=== PATIENT | male | born 1945 | race Caucasian/White ===

== ENCOUNTER 2017-06-18 14:28 | Inpatient (IN) | payer MEDICARE, BC ==
[~2017-06-18] VITALS: Ht 175.3 cm; Wt 85.2 kg
--- NOTE | 2017-06-18 17:35 | NUR ---
recieved to [place] [id number]/.oriented to room and surroundings.
[2017-06-18] MEDS ORDERED: FLOMAX0.4 MG PO (18:01)
[2017-06-18] MEDS ORDERED: ZETIA10 MG PO (18:02)
[2017-06-18] MEDS ORDERED: CELEXA10 MG PO (18:03)
[2017-06-18] MEDS ORDERED: ZYRTEC10 MG PO (18:04)
[2017-06-18] MEDS ORDERED: COUMADIN5 MG PO (18:05)
[2017-06-18] MEDS ORDERED: BAYER CHEWABLE81 MG PO (18:05)
[2017-06-18] MEDS ORDERED: HYDROCODONE-APA1 TAB PO (18:10)
[2017-06-18 19:00] VITALS: BP 164/65
--- NOTE | 2017-06-18 19:30 | NUR ---
PT IN BE WITH HOB UP FOR COMFORT. RESTING QUIETLY. ALERT & ORIENTED. CABBAGE SITE X2 RIGHT ARM AND RIGHT LEG. LEFT SIDE PACEMAKER. CPAP @ NIGHT. TELEMETRY. NO O2. NO IV. BED IN LOWEST POSITION AND CALL LIGHT WITHIN REACH.
[2017-06-18 21:29] LABS: INR 1.12 (0.85-1.17); PROTIME 14.3 SECONDS (11.6-15.0)
[2017-06-18 22:31] VITALS: BMI 28.8
--- NOTE | 2017-06-18 22:53 | NUR ---
SIA RAHMAN TO DO ASSESSMENT. JOSE J ALARM PLACED ON PT'S BED.
--- NOTE | 2017-06-18 22:55 | NUR ---
ADMISSION ASSESSMENT COMPLETE. EMPLACED PATIENT'S CPAP MASK AND INITIATED CPAP THERAPY.
--- NOTE | 2017-06-19 01:56 | NUR ---
ASSISTED PT WITH URINAL.
--- NOTE | 2017-06-19 04:23 | NUR ---
PT IN BED WITH HOB UP FOR COMFORT. EYES CLOSED. CHEST RISING AND FALLING. BED IN LOWEST POSITION AND CALL LIGHT WITHIN REACH. JOSE J ALARM ON.
[2017-06-19 07:04] LABS: BASOPHILS 0.2 % (0-2); EOSINOPHILS 2.2 % (0-7); HEMOGLOBIN 10.5 g/dL (13.5-17.5); IMMATURE GRANULOCYTES 6.6 % (0-5); LYMPHOCYTES 17.6 % (15-50); MCH 28.7 pg (26.0-34.0); MCHC 32.8 g/dL (31.0-37.0); MCV 87.4 fL (80.0-100.0); MEAN PLATELET VOLUME 9.6 fL (7.4-10.4); MONOCYTES 5.9 % (2-11); NEUTROPHILS 67.5 % (40-80); PLATELET COUNT 240 10x3/uL (130-400); RBC 3.66 10x6/uL (4.20-6.10); RDW 15.3 % (11.5-14.5); WBC 9.1 10x3/uL (4.8-10.8)
[2017-06-19 07:26] LABS: ANION GAP 12.8 mmol/L (8-16); CALCIUM 8.8 mg/dL (8.5-10.1); CARBON DIOXIDE 23.4 mmol/L (21.0-32.0); CREATININE - SERUM 1.7 mg/dL (0.6-1.3); POTASSIUM - SERUM 4.2 mmol/L (3.5-5.1)
[2017-06-19 08:03] LABS: INR 1.09 (0.85-1.17); PROTIME 13.8 SECONDS (11.6-15.0)
[2017-06-19 08:27] VITALS: BP 164/64
--- NOTE | 2017-06-19 09:35 | NUR ---
PT AM MEDS ADMINISTERED. PT RT ARM DRESSING CHANGED AND RLE DRESSING APPLIED DUE TO SEROSANG DRAINAGE FROM BOTH SITES. PT BECAME VERY SHORT OF BREATH WHEN ASKED TO STAND AND WHILE CHANGING HIS PANTS. O2 SAT REMAINED IN THE LOW 90'S. PT DENIES FURTHER NEEDS AT THIS TIME. EVERARDO.
[2017-06-19 10:15] VITALS: Ht 175.3 cm; Wt 85.2 kg
--- NOTE | 2017-06-19 11:58 | NUR ---
PATIENT SITTING UP IN A CHAIR IN ROOM. CALL LIGHT WITHIN REACH. VOICES NO NEEDS AT THIS TIME.
--- NOTE | 2017-06-19 12:55 | NUR ---
NEW ORDERS RECEIVED AFTER CARE PLAN MEETING.
--- NOTE | 2017-06-19 14:11 | NUR ---
PATIENT UNABLE TO SIGN ADMISSION PAPER WORK DUE TO HIS HANDWRITTING. VERBAL CONSENT GIVEN FOR.
--- NOTE | 2017-06-19 15:12 | NUR ---
PRN PAIN MEDICATION GIVEN FOR INCISIONAL MIDLINE PAIN/DISC PER PATIENT REQUEST
--- NOTE | 2017-06-19 15:16 | NUR ---
CARE TEAM MEETING: PATIENT NEW TO UNIT AND WILL BE RA AT NEXT MEETING. WILL CONTINUE TO FOLLOW WITH PATIENT.
--- NOTE | 2017-06-19 16:42 | NUR ---
PATIENT RESTING IN BED. CALL LIGHT WITHIN REACH. VOICES NO NEEDS AT THIS TIME
--- NOTE | 2017-06-19 18:08 | NUR ---
DRESSING CHANGED TO LEFT INNER ARM INCSION. CLEANED WITH WOUND HATCHERY EMPLOYEE. MEPILEX BOARDER DRESSING APPLIED. DRESSING CHANGED TO RIGHT INNER LEG. CLEANED WITH WOUND HATCHERY EMPLOYEE. MEPILEX BOARDER DRESSING APPLIED
--- NOTE | 2017-06-19 19:20 | NUR ---
PT IN BED WITH HOB UP FOR COMFORT. WATCHING TV. TELEMETRY. NO O2. NO IV. CPAP @ NIGHT. BED IN LOWEST POSITION AND ALL LIGHT WITHIN REACH.
[2017-06-19 20:15] VITALS: BP 102/63
--- NOTE | 2017-06-19 23:20 | NUR ---
PT IN BED WITH HOB UP FOR COMFORT. EYES CLOSED. CHEST RISING AND FALLING. CPAP ON. JOSE J ALARM ON. BED IN LOWEST POSITION AND CALL LIGHT WITHIN REACH.
--- NOTE | 2017-06-20 01:50 | NUR ---
RESTING QUIETLY IN BED, CPAP MASK IN PLACE.
--- NOTE | 2017-06-20 04:07 | NUR ---
PT IN BED WITH HOB UP FOR COMFORT. EYES CLOSED. REPSIRATIONS EVEN AND UNLABORED. CPAP ON. BED IN LOWEST POSITION AND CALL LIGHT WITHIN STELLA. JOSE J ALARM ON.
[2017-06-20 06:30] LABS: INR 1.29 (0.85-1.17); PROTIME 15.6 SECONDS (11.6-15.0)
[2017-06-20 08:18] VITALS: BP 151/61
--- NOTE | 2017-06-20 09:44 | NUR ---
RESTING ON BED AND TALKING ON THE PHONE. IS ON STERNAL PRECAUTIONS. INCISIONS TO RUE, RLE, CHEST NOTED.
--- NOTE | 2017-06-20 12:36 | NUR ---
SITTING UP IN BED EATING LUNCH. DENIES INCREASED SOB AT REST.
--- NOTE | 2017-06-20 17:32 | NUR ---
JUST FINISHED SUPPER WHILE SITTING UP IN BED. DENIES NEEDS. USES URINAL.
[2017-06-20 19:00] VITALS: BP 131/41
--- NOTE | 2017-06-20 19:27 | NUR ---
STATED TO PT "TONIGHT IS YOUR SHOWER TONIGHT WOULD YOU LIKE TO GET IN THE SHOWER HERE IN A LITTLE BIT?" PT STATED, "NO NOT RIGHT NOW MY BACK IS HURTING TOO BAD." I STATED TO PT, "WHAT IS YOUR PAIN LEVEL 1-10?" PT STATED "ITS ABOUT A 6." I STATED TO PT WOULD YOU LIKE YOUR PAIN MEDICINE?" PT SAID "YES PLEASE." PT ALSO STATED THAT HE "FEELS LIKE I NEED TO HAVE A BM HERE SOON."
--- NOTE | 2017-06-20 20:00 | NUR ---
RESTING IN BED, EYES CLOSED.
--- NOTE | 2017-06-20 21:37 | NUR ---
ASKED PT IF HIS PAIN IS ANY BETTER AND IF HE WANTS TO GO AHEAD AND SLEEP. PT STATED THAT HE JUST WANTS TO GO TO SLEEP. ASSITED PT WITH CPAP.
--- NOTE | 2017-06-21 01:32 | NUR ---
PT IN BED WITH HOB UP FOR COMFORT. EYES CLOSED. CHEST RISING AND FALLING. BED IN LOWEST POSITION AND CALL LIGHT WITHIN REACH.
--- NOTE | 2017-06-21 04:00 | NUR ---
ASSISTED PT TO BATHROOM AND BACK TO BED. DRESSINGS CHANGED ON RIGHT ARM AND RIGHT UPPER LEG. CLEANSED BOTH SITES WITH WOUND SRPAY AND 4X4'S AND COVERED WITH BORDERED GAUZE DRESSING.
--- NOTE | 2017-06-21 04:06 | NUR ---
PT STATES HE DOES NOT WANT TO PUT CPAP ON.
[2017-06-21 06:31] LABS: HEMATOCRIT 29.2 % (42.0-54.0); HEMOGLOBIN 9.6 g/dL (13.5-17.5); LYMPHOCYTES 5.4 % (15-50); MCH 28.2 pg (26.0-34.0); MCHC 32.9 g/dL (31.0-37.0); MCV 85.6 fL (80.0-100.0); NEUTROPHILS 82.1 % (40-80); PLATELET COUNT 234 10x3/uL (130-400); RBC 3.41 10x6/uL (4.20-6.10); RDW 15.4 % (11.5-14.5); WBC 9.6 10x3/uL (4.8-10.8)
[2017-06-21 06:32] LABS: PROTIME 18.4 SECONDS (11.6-15.0)
[2017-06-21 06:35] LABS: INR 1.58 (0.85-1.17)
[2017-06-21 06:49] LABS: ANION GAP 13.8 mmol/L (8-16); CARBON DIOXIDE 23.6 mmol/L (21.0-32.0); CREATININE - SERUM 1.9 mg/dL (0.6-1.3); POTASSIUM - SERUM 4.4 mmol/L (3.5-5.1)
[2017-06-21 09:02] VITALS: BP 153/51
--- NOTE | 2017-06-21 13:55 | NUR ---
PATIENT ADMITTED TO REHAB FROM [facility]. DISCHARGE PLANS ARE FOR PATIENT TO RETURN HOME AT DISCHARGE. WILL CONTINUE TO FOLLOW WITH PATIENT.
--- NOTE | 2017-06-21 19:09 | NUR ---
PT. IN BED WITH HOB UP FOR COMFORT AND HAS MULTIPLE FAMILY MEMBERS PRESENT. NO VOICED NEEDS AND HE HAS HIS CALL LIGHT WITHIN REACH.
--- NOTE | 2017-06-21 19:34 | NUR ---
PT IS RESTING IN BED WATCHING TV. ALERT AND ORIENTED X 3. DENIES PAIN OR DISCOMFORT AT THIS TIME. VSS. SEVERAL FAMILY MEMBERS IN ROOM VISITING. SR'S ARE UP X 2 IN BED. CALL LIGHT AND BEDSIDE TABLE ARE WITHIN EASY REACH.
[2017-06-21 20:58] VITALS: BP 162/73
--- NOTE | 2017-06-21 23:23 | NUR ---
PT IS RESTING QUIETLY IN BED WITH EYES CLOSED. RESPS ARE EVEN AND UNLABORED. NO ACUTE DISTRESS NOTED.
--- NOTE | 2017-06-22 03:38 | NUR ---
PT RESTING IN BED WITH EYES CLOSED.
[2017-06-22 06:10] LABS: INR 1.87 (0.85-1.17)
[2017-06-22 08:00] VITALS: BP 148/66
--- NOTE | 2017-06-22 08:00 | NUR ---
SHIFT ASSMT COMPLETED.
[2017-06-22 19:39] VITALS: BP 154/62
--- NOTE | 2017-06-22 20:01 | NUR ---
PT. IN BED WITH HOB UP FOR COMFORT AND IS WATCHING TV. NO VOICED NEEDS AND HIS CALL LIGHT IS WITHIN REACH.
--- NOTE | 2017-06-22 21:21 | NUR ---
PT ASSISTED TO SHOWER. ALL INCISIONS COVERED, AND PT SHOWERED WITH MOD ASSIST FOR WASHING AND DRYING HIS BACK AND LOWER LEGS ONLY. ASSISTED TO DRESS IN GOWN FOR SLEEP, AND BACK INTO BED. CPAP ON.
--- NOTE | 2017-06-22 23:47 | NUR ---
RESTING IN BED WITH CPAP ON. NO DISTRESS NOTED.
--- NOTE | 2017-06-23 03:01 | NUR ---
PT SITTING UP IN WC IN HIS ROOM. STATES HE COULD NOT STAND LAYING IN THE BED ANY LONGER, AND HAD TO SIT UP.
--- NOTE | 2017-06-23 05:23 | NUR ---
PT ASSISTED TO THE BATHROOM WITH SBA. PT OPTED TO SIT IN CHAIR AFTER. CALL LIGHT IN REACH.
[2017-06-23 06:52] LABS: INR 2.23 (0.85-1.17); PROTIME 24.1 SECONDS (11.6-15.0)
--- NOTE | 2017-06-23 08:00 | NUR ---
SHIFT ASSMT COMPLETED.BREAKFAST GIVEN.EDEMA TO ARMS AND LEGS NOTED;4+.SOB WITH ACTIVITY.
[2017-06-23 08:30] VITALS: BP 173/67
--- NOTE | 2017-06-23 12:00 | NUR ---
UP OOB TO CHAIR FOR LUNCH.
--- NOTE | 2017-06-23 16:00 | NUR ---
DOZING IN CHAIR.ASSISTED BACK TO BED.
--- NOTE | 2017-06-23 19:27 | NUR ---
PT IS RESTING QUIETLY IN BED WITH EYES CLOSED. AWOKE EASILY TO VERBAL STIMULI. O2 IS ON @ 2LPM PER NC. PT GETS SOB WITH ALL ACTIVITY. 3+EDEMA NOTED IN ALL EXTREMITIES. FEET ELEVATED UP ON 2 PILLOWS. TELEMETRY UNIT IS ON AND INTACT. SR'S ARE UP X 3 IN BED. CALL LIGHT AND BEDSIDE TABLE ARE WITHIN EASY REACH.
--- NOTE | 2017-06-23 19:47 | NUR ---
PT. IN BED WITH HOB UP FOR COMFORT AND IS WATCHING TV. DENIES ANY NEEDS AND HAS HIS CALL LIGHT IN HAND.
[2017-06-23 21:26] VITALS: BP 151/76
--- NOTE | 2017-06-23 23:00 | NUR ---
PT IS RESTING QUIETLY IN BED WITH EYES CLOSED. RESPS ARE EVEN AND UNLABORED. NO ACUTE DISTRESS NOTED.
--- NOTE | 2017-06-24 01:48 | NUR ---
PT C/O OF PAIN, A LEVEL OF 3, PAIN MED GIVEN.
--- NOTE | 2017-06-24 02:50 | NUR ---
REPLACE BATTERY FOR PT'S MONITOR.
[2017-06-24 05:12] LABS: INR 2.98 (0.85-1.17); PROTIME 30.2 SECONDS (11.6-15.0)
--- NOTE | 2017-06-24 06:10 | NUR ---
REST IN BED, CALL LIGHT IN REACH.
[2017-06-24 08:00] VITALS: BP 176/71
--- NOTE | 2017-06-24 08:09 | NUR ---
SITTING UP IN CHAIR IN ROOM WITH BOTH LEGS ELEVATED. 4+ EDEMA NOTED TO BLE. HE DENIES INCREASED SOB AT REST. REMAINS ON STERNAL PRECAUTIONS. DSG TO BRONSON REES. CHEST INCISION NOTED ALSO IT IS OPEN TO AIR.
[2017-06-24 08:38] LABS: BASOPHILS 0.2 % (0-2); EOSINOPHILS 0.8 % (0-7); HEMATOCRIT 31.3 % (42.0-54.0); HEMOGLOBIN 10.1 g/dL (13.5-17.5); LYMPHOCYTES 4.5 % (15-50); MCH 28.2 pg (26.0-34.0); MCHC 32.3 g/dL (31.0-37.0); MCV 87.4 fL (80.0-100.0); MEAN PLATELET VOLUME 10.2 fL (7.4-10.4); MONOCYTES 9.3 % (2-11); NEUTROPHILS 84.2 % (40-80); PLATELET COUNT 276 10x3/uL (130-400); RBC 3.58 10x6/uL (4.20-6.10); RDW 15.3 % (11.5-14.5); WBC 11.5 10x3/uL (4.8-10.8)
[2017-06-24 08:58] LABS: ANION GAP 13.7 mmol/L (8-16); CALCIUM 8.7 mg/dL (8.5-10.1); CREATININE - SERUM 1.5 mg/dL (0.6-1.3); POTASSIUM - SERUM 4.7 mmol/L (3.5-5.1)
--- NOTE | 2017-06-24 12:12 | NUR ---
SITTING UP IN ROOM EATING LUNCH. CALL LIGHT IN REACH
--- NOTE | 2017-06-24 19:49 | NUR ---
PT IS RESTING IN BED WITH EYES OPEN. VISITING WITH A FAMILY MEMBER. PT STATES HE FEELS BETTER TODAY, AND IS BREATHING A LITTLE BETTER. VSS. NO ACUTE DISTRESS NOTED. O2 IS ON @ 2LPM PER NC. SR'S ARE UP X 2 IN BED. CALL LIGHT AND BEDSIDE TABLE ARE WITHIN EASY REACH. ALL INCISIONS ARE CDI. NO DRAINAGE NOTED. SR'S ARE UP X 2 IN BED. CALL LIGHT AND BEDSIDE TABLE ARE WITHIN EASY REACH.
[2017-06-24 21:41] VITALS: BP 154/53
--- NOTE | 2017-06-24 22:13 | NUR ---
PT RESTING IN RECLINER WATCHING TV. NO NEEDS VOICED.
--- NOTE | 2017-06-24 23:40 | NUR ---
RESTING IN BED WITH EYES CLOSED. NO S/S OF DISTRESS OBSERVED. CONTINUES TO REFUSE TO WEAR CPAP. CALL LIGHT AND OVERBED TABLE IN REACH.
--- NOTE | 2017-06-25 04:17 | NUR ---
PT IS RESTING QUIETLY IN BED WITH EYES CLOSED. RESPS ARE EVEN AND UNLABORED. NO ACUTE DISTRESS NOTED.
--- NOTE | 2017-06-25 06:05 | NUR ---
PT RESTING IN BED WITH EYES OPEN. NO ACUTE DISTRESS NOTED. PT STATES HE IS FEELING MUCH BETTER TODAY.
[2017-06-25 06:43] LABS: INR 2.66 (0.85-1.17); PROTIME 27.6 SECONDS (11.6-15.0)
[2017-06-25 08:00] VITALS: BP 179/57
--- NOTE | 2017-06-25 08:01 | NUR ---
EATING BREAKFAST IN ROOM. DENIES NEEDS. CALL LIGHT IN REACH
--- NOTE | 2017-06-25 10:54 | NUR ---
Nutrition Follow Up: Pt was in therapy at the time of RD visit. Interview deferred. Pt is eating 48% meal avg on a cardiac diet. +BM 06/22/17. Labs reviewed. Meds noted including Lasix. Rec continue current diet. RD following.
--- NOTE | 2017-06-25 18:08 | NUR ---
SITTING IN RECLINER IN ROOM WATCHING TV
--- NOTE | 2017-06-25 19:20 | NUR ---
PT IN BED [facility] HOB UP FOR COMFORT. EYES CLOSED. CHEST RISING AND FALLING. O2 @ 2L. NO IV. TELEMETRY. CPAP @ NIGHT. PACEMAKER. JOSE J ALARM ON. BED IN LOWEST POSITION AND CALL LIGHT WITHIN REACH.
[2017-06-25 19:30] VITALS: BP 182/68
--- NOTE | 2017-06-25 22:27 | NUR ---
ASSISTED PT TO BATHROOM AND BACK TO BED. PT HAVING SOB. PT STATES "I THINK I NEED ONE OF MY BREATHING TREATMENTS." CALLED JERROD NAVA AND SHE STATED "I'LL BE DOWN IN A MINUTE."
--- NOTE | 2017-06-26 00:35 | NUR ---
IN BED, EYES CLOSED. RESTING QUIETLY.
[2017-06-26 06:44] LABS: INR 2.7 (0.85-1.17)
[2017-06-26 08:00] VITALS: BP 146/63
--- NOTE | 2017-06-26 08:00 | NUR ---
SHIFT ASSMT COMPLETED.LEGS AND BILAT FEET 4+ DEPENDENT EDEMA,SOB WITH ACTIVITY.CL IN REACH.BREAKFAST TRAYB GIVEN.
--- NOTE | 2017-06-26 12:00 | NUR ---
SITTING UP IN WC EATING LUNCH.
--- NOTE | 2017-06-26 15:29 | NUR ---
CARE TEAM MEETING: FRIEND ATTENDED MEETING PER PATIENT REQUEST. QUESTIONS AND CONCERNS ADDRESSED. TENATIVE DISCHARGE DATE IS 07/02/17. AN APPOINTMENT WILL BE MADE WITH DR. Nelly MAHMOOD AT DISCHARGE. WILL CONTINUE TO FOLLOW WITH PATIENT .
--- NOTE | 2017-06-26 16:00 | NUR ---
UP IN BED RESTING.CL IN REACH.DENIES NEEDS.
[2017-06-26 20:10] VITALS: BP 155/95
--- NOTE | 2017-06-26 20:30 | NUR ---
PT. IN BED WITH HOB/FOB ELEVATED FOR COMFORT. ASSESSMENT COMPLETED. NO VOICED NEEDS AT THIS TIME AND HIS CALL LIGHT IS WITHIN REACH.
--- NOTE | 2017-06-26 23:50 | NUR ---
PT. IN BED WITH HOB/FOB ELEVATED FOR COMFORT. PT. AWAKE AND WATCHING TV. NO VOICED NEEDS AND HIS CALL LIGHT IS WITHIN REACH.
--- NOTE | 2017-06-27 04:12 | NUR ---
PT. IN BED AND IS STILL AWAKE AND WATCHING TV. NO VOICED NEEDS AND HIS CALL LIGHT IS WITHIN REACH.
[2017-06-27 04:57] LABS: BASOPHILS 0.3 % (0-2); EOSINOPHILS 0.9 % (0-7); HEMATOCRIT 29.3 % (42.0-54.0); HEMOGLOBIN 9.5 g/dL (13.5-17.5); LYMPHOCYTES 11.8 % (15-50); MCH 27.9 pg (26.0-34.0); MCHC 32.4 g/dL (31.0-37.0); MCV 86.2 fL (80.0-100.0); MEAN PLATELET VOLUME 9.7 fL (7.4-10.4); MONOCYTES 8.7 % (2-11); NEUTROPHILS 77.3 % (40-80); PLATELET COUNT 248 10x3/uL (130-400); RDW 15.4 % (11.5-14.5); WBC 6.7 10x3/uL (4.8-10.8)
[2017-06-27 05:15] LABS: ANION GAP 13.2 mmol/L (8-16); CALCIUM 9.3 mg/dL (8.5-10.1); CARBON DIOXIDE 24.3 mmol/L (21.0-32.0); CREATININE - SERUM 1.6 mg/dL (0.6-1.3); INR 3.18 (0.85-1.17); POTASSIUM - SERUM 4.5 mmol/L (3.5-5.1); PROTIME 31.8 SECONDS (11.6-15.0)
[2017-06-27 08:00] VITALS: BP 148/46
--- NOTE | 2017-06-27 08:00 | NUR ---
SHIFT ASSMT COMPLETED.
--- NOTE | 2017-06-27 12:00 | NUR ---
EATING LUNCH.CL IN REACH.
--- NOTE | 2017-06-27 19:16 | NUR ---
RECEIVED REPORT COMPLETE FROM DAY SHIFT NURSE.
--- NOTE | 2017-06-27 23:49 | NUR ---
REST QUIETLY IN BED, CALL LIGHT IN REACH.
--- NOTE | 2017-06-28 00:45 | NUR ---
SITTING UP ON LEFT SIDE OF BED. SAYS HE IS JUST WATCHING TV. SENT PRIMARY NURSE TO PATIENT TO SET HIS BED ALARM.
[2017-06-28 02:21] VITALS: BP 131/69
--- NOTE | 2017-06-28 03:10 | NUR ---
EMPTY URINE 500ML FROM URINAL.
[2017-06-28 06:38] LABS: ANION GAP 12.2 mmol/L (8-16); CALCIUM 9.3 mg/dL (8.5-10.1); CARBON DIOXIDE 27.5 mmol/L (21.0-32.0); CREATININE - SERUM 1.7 mg/dL (0.6-1.3); POTASSIUM - SERUM 4.7 mmol/L (3.5-5.1)
[2017-06-28 06:44] LABS: INR 3.51 (0.85-1.17); PROTIME 34.4 SECONDS (11.6-15.0)
--- NOTE | 2017-06-28 08:04 | NUR ---
SITTING UP IN RECLINER IN ROOM EATING BREAKFAST. DSG NOTED TO RUE. INCISIONS INTACT TO CHEST.
[2017-06-28 08:09] VITALS: BP 168/68
--- NOTE | 2017-06-28 16:44 | NUR ---
RESTING QUIETLY IN BED. CALL LIGHT IN REACH. BED IN LOWEST POSITION
[2017-06-28 19:30] VITALS: BP 139/60
--- NOTE | 2017-06-28 19:30 | NUR ---
PT IS UP IN RESTROOM WITH EARLY CHILDHOOD EDUCATION COORDINATOR ASSISTING. NO ACUTE DISTRESS NOTED.
--- NOTE | 2017-06-28 21:19 | NUR ---
PT IS RESTING QUIETLY IN BED WITH EYES CLOSED. RESPS ARE EVEN AND UNLABORED. NO ACUTE DISTRESS NOTED.
--- NOTE | 2017-06-28 23:55 | NUR ---
PT RESTING IN BED WITH EYES CLOSED.
--- NOTE | 2017-06-29 01:40 | NUR ---
RESTING QUIETLY IN BED.
--- NOTE | 2017-06-29 06:09 | NUR ---
PT RESTING IN BED WITH EYES OPEN. DENIES ACUTE NEEDS THIS AM. STATES HE FEELS LIKE HE IS ABOUT READY TO DC HOME.
--- NOTE | 2017-06-29 08:00 | NUR ---
SITTING UP ON SIDE OF BED EATING BREAKFAST. ASSISTED WITH FILLING OUT MENU. DENIES ANY NEEDS OR PAIN. NO S/SX OF RESPIRATORY DISTRESS NOTED. CALL LIGHT AND WATER WITHIN REACH, BED LOW AND ALARM ON. WILL CONTINUE TO MONITOR
[2017-06-29 09:50] VITALS: BP 174/79
--- NOTE | 2017-06-29 11:03 | NUR ---
SITTING UP IN CHAIR READING NEWSPAPER. DENIES ANY NEEDS. CALL LIGHT AND PERSONAL ITEMS WITHIN REACH, CHAIR BRAKES LOCKED. WILL CONTINUE TO MONITOR
--- NOTE | 2017-06-29 13:29 | NUR ---
SITTING UP IN W/C VISTING WITH FAMILY. DENIES ANY NEEDS OR PAIN. CALL LIGHT WITHIN REACH, W/C BRAKES LOCKED. WILL CONTINUE TO MONITOR
--- NOTE | 2017-06-29 16:09 | NUR ---
IN THERAPY GYM WITH PHYSICAL THERAPY. NO S/SX OF RESPIRATORY DISTRESS NOTED. WILL CONTINUE TO MONITOR
--- NOTE | 2017-06-29 18:30 | NUR ---
SITTING UP IN W/C WATCHING TV. DENIES ANY NEEDS OR PAIN. CALL LIGHT WITHIN REACH, W/C BRAKES LOCKED. WILL CONTINUE TO MONITO
--- NOTE | 2017-06-29 18:42 | NUR ---
RESTING QUIETLY IN BED. CALL LIGHT IN REACH. BED IN LOWEST POSITION.
--- NOTE | 2017-06-29 19:30 | NUR ---
PT IS RESTING IN BED WITH EYES OPEN. ALERT AND ORIENTED X 3. DENIES ACUTE DISCOMFORT AT THIS TIME. VSS. INCISIONS ARE ALL HEALING WELL. NO DRAINAGE NOTED. TELEMETRY UNIT IS ON AND INTACT. SR'S ARE UP X 2 IN BED. CALL LIGHT AND BEDSIDE TABLE ARE WITHIN EASY REACH.
[2017-06-29 22:18] VITALS: BP 164/60
--- NOTE | 2017-06-29 22:58 | NUR ---
RESTING QUIETLY IN BED WITH EYES CLOSED. RESPS ARE EVEN AND UNLABORED. NO ACUTE DISTRESS NOTED.
--- NOTE | 2017-06-30 01:00 | NUR ---
PT IS RESTING QUIETLY IN BED WITH EYES CLOSED. RESPS ARE EVEN AND UNLABORED. NO ACUTE DISTRESS NOTED.
--- NOTE | 2017-06-30 03:16 | NUR ---
PT NOTED SITTING ON THE SIDE OF HIS BED. STATED: " I JUST NEEDED TO SIT UP A WHILE TO CHANGE POSITIONS."
--- NOTE | 2017-06-30 04:10 | NUR ---
SITTING UP ON THE SIDE OF THE BED AT THIS TIME. PLEASANT AND COOPERATIVE, DENIES ANY PAIN OR DISCOMFOT. CALL LIGHT AND OVERBED TABLE IN REACH.
[2017-06-30 08:44] VITALS: BP 167/65
--- NOTE | 2017-06-30 15:28 | NUR ---
SITTING UP ON SIDE OF BED TALKING WITH FRIENDS. DENIES NEEDS. BLE FROM CALF TO TOES ARE SWOLLEN 4+. ENCOURAGED PT TO KEEP BLE ELEVATED.
--- NOTE | 2017-06-30 20:05 | NUR ---
PT C/O HARD TO BREATH, TALK TO RESP STAFF, AND RESP STAFF GIVE TREATMENT TO PT.
--- NOTE | 2017-06-30 21:05 | NUR ---
PT STATE HE CAN BREATH BETER THAN AN HOUR AGO.
--- NOTE | 2017-07-01 00:02 | NUR ---
SIT UP IN CHAIR, STATES "THE CHAIR IS COMFORTABLE FOR MY BACK."
[2017-07-01 00:07] VITALS: BP 166/58
[2017-07-01 07:21] LABS: BASOPHILS 0.3 % (0-2); EOSINOPHILS 0.6 % (0-7); HEMATOCRIT 31.7 % (42.0-54.0); IMMATURE GRANULOCYTES 0.6 % (0-5); LYMPHOCYTES 15.4 % (15-50); MCH 27.3 pg (26.0-34.0); MCHC 31.5 g/dL (31.0-37.0); MCV 86.6 fL (80.0-100.0); MEAN PLATELET VOLUME 9.8 fL (7.4-10.4); MONOCYTES 10.2 % (2-11); NEUTROPHILS 72.9 % (40-80); PLATELET COUNT 282 10x3/uL (130-400); RBC 3.66 10x6/uL (4.20-6.10); RDW 15.5 % (11.5-14.5); WBC 6.5 10x3/uL (4.8-10.8)
[2017-07-01 07:41] LABS: ANION GAP 12.4 mmol/L (8-16); CALCIUM 9.3 mg/dL (8.5-10.1); CARBON DIOXIDE 27.7 mmol/L (21.0-32.0); CREATININE - SERUM 1.7 mg/dL (0.6-1.3); POTASSIUM - SERUM 4.1 mmol/L (3.5-5.1)
--- NOTE | 2017-07-01 07:54 | NUR ---
RESTING QUIETLY IN BED. CALL LIGHT IN REACH. BED IN LOWEST POSITION.
[2017-07-01] MEDS ORDERED: LASIX40 MG PO (08:40)
--- NOTE | 2017-07-01 08:40 | RHP ---
PATIENT: DALTON FORD MEDICAL RECORD: [id number] ACCOUNT: [id number] LOCATION:[id number] : 47 ADMISSION DATE: 06/18/17 REHABILITATION HISTORY AND PHYSICAL EXAMINATION POST ADMISSION PHYSICIAN EXAMINATION POST-ADMISSION PHYSICAL EXAMINATION AND HISTORY AND PHYSICAL ADMITTING DIAGNOSES: Acute mpa-XD-pooxtew elevation myocardial infarction, status post coronary artery bypass grafting with regraft to the left anterior descending and right coronary artery. Also, mitral valve and tricuspid valve annuloplasty. HISTORY OF PRESENT ILLNESS: The patient is a 72-year-old gentleman, who is status post coronary artery disease, status post coronary artery bypass grafting, who presented to [facility] with 1-month history of progressive shortness of breath, moderate to severe. He was found to be in atrial fibrillation with rapid ventricular response in the ED. Blood pressure was low at 95/50. His heart rate was 121. He was taken to the OR for regraft of LAD and right coronary artery with his right arm vein bypass and right greater saphenous vein bypass on 06/12. He also underwent a mitral valve and tricuspid valve annuloplasty. This was followed by emergent permanent pacemaker placement on 06/15 because of complete heart block after surgery. The patient has been hyponatremic postoperatively with a sodium as low as 128, currently is 130. He has had some acute blood loss anemia with a hemoglobin and hematocrit of 7 and 21. Current hemoglobin is 10.3, hematocrit is 31.4. He has chronic renal insufficiency and has a high BUN of 43 and creatinine of 2.2. This is down from 64 and 3.96. He has midsternal chest incision, right upper arm incision, right thigh incision, all closed with Dermabond. Chest incision looks pretty good. His right upper arm excision is closed, but has some oozing, some serosanguineous material around it. His right thigh incision is closed, but also has some oozing with some serosanguineous type drainage there. He has a small 5-10% right-sided pneumothorax noted on chest x-ray. His current sat is 91% on room air. He was living at home with his significant other prior to this hospitalization. He was completely independent with ADLs, driving and had an active lifestyle. He is working [id number] assist with PT, using sternal precautions and ambulating up to 35 feet with moderate assist, pushing a wheelchair requiring 2 rest breaks. Acute inpatient rehab was requested and definitely needed by this gentleman if we hope to get him back home to his prior level of functioning or better if possible. Comorbidities include hypertension, AFib, status post emergent pacemaker placement, status post coronary artery bypass grafting, acute jws-EJ-fothefw elevation OR, CHF, atrial fibrillation, pulmonary hypertension, hyponatremia, acute blood loss anemia, biliary colic. PAST MEDICAL HISTORY: Significant for coronary artery disease. PAST SURGICAL HISTORY: Includes coronary artery bypass grafting and appendectomy. ALLERGIES: PENICILLIN AND ANY TYPE OF STATINS. CURRENT MEDICATIONS: Include aspirin chewable 81 mg daily, Florinda 60 mg daily, citalopram 10 mg daily, warfarin 5 mg daily, Ventolin updrafts as needed, [place] 10/325 one tab every 4 hours p.r.n., and polyethylene glycol 17 grams in 8 ounces of water daily. HISTORY AND PHYSICAL [id number] DALTON FORD HABITS: No current alcohol or tobacco use. FAMILY HISTORY: Noncontributory. SOCIAL HISTORY: The patient hopes to return back home with his significant other, get back to his prior level of functioning. REVIEW OF SYSTEMS: GENERAL: Does complain of lot of weakness. HEENT: Denies cold, cough, or congestion. CARDIOVASCULAR: Denies chest pain. PHYSICAL EXAMINATION: VITAL SIGNS: Stable, afebrile. GENERAL: An elderly gentleman, in no acute distress on exam. HEENT: Normocephalic and atraumatic. Mucosa moist. NECK: Supple. No lymphadenopathy. LUNGS: Clear at this time. HEART: Irregular rate and rhythm. ABDOMEN: Benign. EXTREMITIES: No clubbing, cyanosis or edema. NEUROLOGIC: Intact. SKIN: His skin incisions to his chest look really well. LABORATORY DATA: White count is 9.1, H&H of 10 and 32, and platelet count is 240. His INR is 1.09. Sodium is 130, potassium is 4.2, BUN and creatinine of 33 and 1.7, blood sugar is noted to be 89. ASSESSMENT: This is a 72-year-old gentleman, who presents secondary to coronary artery bypass grafting and annuloplasty of 2 of his valves. The patient has potential to make improvement. We will institute the following multidisciplinary therapies including, but not limited to, physical, occupational, respiratory, speech, nutritional services, prosthetics and orthotics. Given his complex condition and risk for more complications, rehabilitation services cannot be provided at a low level of care such as a nursing home facility. PLAN: 1. Admit to [facility] rehab for intensive inpatient therapy to include the following disciplines: A. Physical therapy to improve gait, all transfer skills and bed mobility to a modified independent level. B. Occupational therapy to improve activities of daily living to a modified independent level. C. Case management to assist with discharge planning and placement options. D. Nutrition to assist with nutritional needs. E. Rehabilitation nursing to assist in monitoring the patient's underlying medical conditions and to assist with any type of bowel or bladder management. 2. The patient's current medication and medical care will be continued. 3. The patient will be placed on standard fall precautions. 4. The patient's estimated length of stay is approximately 7-10 days. 5. We will watch the skin areas closely to his arm and especially his leg and consult wound care if necessary. Otherwise, we will continue with current care. HISTORY AND PHYSICAL [id number] DALTON FORD TRANSINT:[id number] Voice Confirmation ID: [id number] DOCUMENT ID: [id number] PK notes whether there has been none or any medical/functional change since admission: - No change since pre-admission screen. PK attests patient continues to be appropriate for IRF: - Continues to be appropriate. MEG ROWE MD at 0840 CC: [id number] DICTATION DATE: 06/19/17 0855 AUTOMOBILE OR TRUCK RENTAL DISPATCHER: 06/19/17 1001 ADM IN [facility] [address] [place] [address]
[2017-07-01 12:42] VITALS: BP 152/59
[2017-07-01 16:21] LABS: INR 2.05 (0.85-1.17); PROTIME 22.5 SECONDS (11.6-15.0)
--- NOTE | 2017-07-01 18:34 | NUR ---
RESTING QUIETLY IN BED. WEARING OXYGEN. DENIES NEEDS.
--- NOTE | 2017-07-01 19:08 | NUR ---
PT. IN BED LYING ON HIS LEFT SIDE. EYES CLOSED AND RESP. EVEN WITH CALL LIGHT WITHIN REACH.
[2017-07-01 21:31] VITALS: BP 148/67
--- NOTE | 2017-07-01 22:24 | NUR ---
PT IS UP IN HIS WC PROPELLING SELF IN THE HALLS. ALERT AND ORIENTED X 3. DENIES ACUTE PAIN OR DISCOMFORT AT THIS TIME. NO SOB NOTED. VSS. 3 +EDEMA NOTED TO BILATERAL LOWER EXTEMITIES. PT ENCOURAGED TO GET IN BED WITH FEET ELEVATED IRA. HE VOICED VERBAL UNDERSTANDING. SR'S ARE UP X 2 WHILE IN BED. CALL LIGHT AND BEDSIDE TABLE ARE WITHIN EASY REACH.
--- NOTE | 2017-07-02 02:50 | NUR ---
PT UP AT THE SINK SITTING IN HIS WC GIVING HIMSELF A BATH, AND DRESSING IN STREET CLOTHES. PT EXCITED TO DC HOME TODAY.
--- NOTE | 2017-07-02 06:28 | NUR ---
PT IS RESTING IN HIS ROOM SITTING IN HIS WC. NO NEEDS VOICED.
--- NOTE | 2017-07-02 08:00 | NUR ---
SHIFT ASSMT COMPLETED.PLAN FOR DC HOME TODAY.INCISIONS HEALING WELL.
[2017-07-02 08:43] VITALS: BP 156/71
--- NOTE | 2017-07-02 09:38 | NUR ---
PATIENT DISCHARGING HOME WITH S/O. [facility] WILL FOLLOW WITH PATIENT AT HOME FOR THERAPY. NO NEW DME NEEDED AT THIS TIME. DR. TRAVON MAHMOOD 07/04/17 @ 2:00, DR. GONZALEZ 07/10/17 @ 10:00. PATIENT CHOICE FORM FOR HOME HEALTH AND [facility] FORM SIGNED, EXPLAINED AND FILED IN CHART.RECORDS HAVE BEEN FAXED TO PATIENT PCP WITH CONFORMATION RECIEVED
--- NOTE | 2017-07-02 11:45 | NUR ---
REVIEWED MEDS/F/U AND HOME HEALTH TO SET UP THERAPIES.DC'D TO HOME IN STABLE CONDITION.
== END 2017-07-02 11:45 | disposition home health service (06) | DRG 280 ==
LOC: D.REHAB 14:28
PROVIDERS: ADMIT Emergency Medicine
DX: I21.4 Non-ST elevation (NSTEMI) myocardial infarction (principal); I50.43 Acute on chronic combined systolic (congestive) and diastolic (congestive) heart failure; E87.1 Hypo-osmolality and hyponatremia; D62 Acute posthemorrhagic anemia; Z95.1 Presence of aortocoronary bypass graft; I48.91 Unspecified atrial fibrillation; Z95.0 Presence of cardiac pacemaker; I11.0 Hypertensive heart disease with heart failure; I27.20 Pulmonary hypertension, unspecified; K80.50 Calculus of bile duct without cholangitis or cholecystitis without obstruction